=== PATIENT | female | born 1985 | race Hispanic/Latino ===

== ENCOUNTER 2018-03-10 17:37 | Emergency (ER) | payer OTHER, SELFPAY ==
[2018-03-10 17:58] VITALS: BP 102/59; PULSE 86; RESP 14; TEMP 36.9; O2SAT 99
--- NOTE | 2018-03-10 18:03 | ED_ITS ---
HPI - General Adult General Chief complaint: Vaginal Bleeding Stated complaint: 6-7wks preg, lots of bleeding,thinks miscarriage Time Seen by Provider: 03/10/18 18:00 Source: patient Mode of arrival: ambulatory Limitations: no limitations History of Present Illness HPI narrative: Patient is a 32-year-old at approximately 7 weeks EGA here for evaluation of vaginal bleeding. Patient states that she has had an uncomplicated up to this point. This was a planned . Medications use to help her get . This morning she started to have some vaginal spotting. She called the nurse advice line told her to come to the emergency department. She went to an outside hospital and was diagnosed as 6 weeks 3 days with an HCG quant of 6500. She was diagnosed with a urinary tract infection and given a prescription for Keflex. She states that she stop the pharmacy to fill this prescription when she had a sudden onset of large amount of vaginal bleeding with clots and lower abdominal pain. She came to this hospital Related Data Allergies Allergy/AdvReac Type Severity Reaction Status Date / Time No Known Drug Allergies Allergy Verified 03/10/18 18:17 Review of Systems Constitutional Denies fever(s) and Denies headache(s) ENT Ears, Nose, Mouth, and Throat: Denies dizziness and Denies headache(s) Cardiovascular Denies chest pain and Denies dyspnea Respiratory Denies dyspnea Gastrointestinal Gastrointestinal: Reports abdominal pain, Denies cramping, Denies nausea and Denies vomiting Genitourinary Denies dysuria, Denies urinary incontinence, Denies urinary hesitancy and Reports vaginal discharge Musculoskeletal Denies myalgias and Denies arthralgias Integumentary/Breasts Denies rash Neurologic Denies dizziness and Denies headache(s) Hematologic/Lymphatic Denies easy bleeding PFSH Medical History Healthy adult (Acute) Surgical History No pertinent past surgical history (Acute) Social History marital status: Smoking Status: Never smoker Exam Initial Vital Signs Initial Vital Signs: Vital Signs Temperature 98.4 F 03/10/18 17:58 Pulse Rate 86 03/10/18 17:58 Respiratory Rate 14 03/10/18 17:58 Blood Pressure 102/59 L 03/10/18 17:58 Pulse Oximetry 99 03/10/18 17:58 Const General: cooperative, healthy appearing, comfortable, well developed, well groomed and No acute distress Orientation: alert, awake and oriented x3 Resp Effort & Inspection: normal respiratory effort Auscultation: clear to auscultation bilaterally Cardio Rate: regular rate Rhythm: regular rhythm GI Inspection: non-distended Palpation: soft and No firm Skin Lesions: no lesions Rashes: no rashes Neuro General: alert, awake and oriented x3 Extrem General: normal to inspection and capillary refill normal Psych Appearance: grossly normal and well kempt Course Orders Ordered: ED Orders 03/10/18 18:15 US pelvic complete Stat 03/10/18 18:31 ABO RH Type Stat Basic Metabolic Panel Stat Complete Blood Count AUTO DIFF Stat HCG Quantitative Stat Vital Signs - 8 hr 03/10/18 17:58 03/10/18 18:15 03/10/18 19:40 Temperature 98.4 F 98.4 F Pulse Rate 86 86 78 Respiratory Rate 14 14 16 Blood Pressure 105/67 Blood Pressure [Left Arm] 102/59 L 117/71 Pulse Oximetry 99 99 99 Medical Decision Making Lab Data Lab results reviewed: Yes I reviewed the patient's lab results. Result diagrams: 03/10/18 18:31 03/10/18 18:31 Lab Results 03/10/18 03/10/18 03/10/18 Range/Units 18:31 18:31 18:31 WBC 7.2 (4.5-11.0) X10^3/uL RBC 3.89 L (4.0-5.2) X10^6/uL Hgb 12.6 (12.0-16.0) g/dL Hct 36.6 (36-46) % MCV 94.1 (80-100) fL MCH 32.3 (26-34) PG MCHC 34.4 (30-36) % RDW 13.8 (11.6-14.8) % Plt Count 210 (150-400) X10^3/uL Neut % (Auto) 60.9 (50-75) % Lymph % (Auto) 28.9 (25-40) % [place] % (Auto) 7.8 (3-14) % Eos % (Auto) 1.9 L (2-4) % Baso % (Auto) 0.5 (0-2) % Neut # (Auto) 4400 (9678-1768) /uL Sodium 142 (137-145) mmol/L Potassium 4.0 (3.4-5.1) mmol/L Chloride 103 (98-107) mmol/L Carbon Dioxide 27 (22-32) mmol/L BUN 12 (7-17) mg/dL Creatinine 0.50 L (0.52-1.04) mg/dL Estimated GFR > 60.0 (>60) mL/min BUN/Creatinine Ratio 24.0 H (6-22) Glucose 103 H (70-100) mg/dL Calcium 9.4 (8.4-10.2) mg/dL HCG, Quant 3082.9 mIU/mL Blood Type O Positive Urine Dip Bedside Urine Glucose Negative Bedside Urine Bilirubin - Negative Bedside Urine Ketone - Negative Urine Specific [place] 1.020 Bedside Urine Occult Blood +++ Bedside Urine pH 6.5 Bedside Urine Protein - Negative Bedside Urine Urobilinogen - Negative Bedside Urine Nitrite - Negative Bedside Urine Leukocytes - Negative Esterase Point of care testing: Urine Dip Bedside Urine Glucose Negative Bedside Urine Bilirubin - Negative Bedside Urine Ketone - Negative Urine Specific [place] 1.020 Bedside Urine Occult Blood +++ Bedside Urine pH 6.5 Bedside Urine Protein - Negative Bedside Urine Urobilinogen - Negative Bedside Urine Nitrite - Negative Bedside Urine Leukocytes - Negative Esterase Imaging Data US - abdomen: Radiologist's impression: PROCEDURE: US PELVIC COMPLETE INDICATIONS: 6 WEEKS ; BLEEDING, CRAMPING TECHNIQUE: Real-time scanning was performed of the pelvic organs, with image documentation. Additional endovaginal scanning was necessary due to incomplete visualization of the adnexal and endometrial structures by transabdominal scanning. COMPARISON: None. FINDINGS: Transabdominal scanning: Limited scanning through the kidneys shows no hydronephrosis. No pathologic free abdominal or pelvic fluid. Endovaginal scanning: Uterus: Uterus is normal in size at 8.5 x 4.4 x 5.6 cm. The endometrium measures 12.4 mm in combined thickness. No gestational sac is seen. No gross endometrial mass or fluid. Ovaries: Right ovary measures 3.6 x 2.5 x 3.3 cm in size. Left ovary measures 2.1 x 1.3 x 1.3 cm in size. 1.5 x 1.5 x 1.8 cm simple cyst is noted in right ovary. There is also a 1.5 x 1.6 x 1.8 cm solid appearing mildly echogenic structure within right ovary with no internal increased vascularity. IMPRESSION: 1. No evidence of intrauterine gestation. No gross endometrial mass or fluid. Given patient's history. Finding may represent spontaneous . 2. Simple right ovarian cyst as above. 1.5 x 1.6 x 1.8 cm slightly echogenic and solid-appearing structure in right ovary which may represent corpus luteum. Ectopic gestational sac cannot be entirely excluded. Followup with serial beta hCG level is recommended. 3. Normal appearing left ovary. No pelvic free fluid. [facility] Narrative Medical decision making narrative: I was able to review the medical records from her emergency department visit earlier today. Is reported that her HCG level was 6500. It did say in the note that there was no ultrasound available that hospital today but a bedside ultrasound was performed by the ER physician which reports a intrauterine with gestational sac and crown-rump length of 6 weeks 3 days. Our ultrasound today shows no intrauterine . HCG quantitative of 3082. The ultrasound does show what appears to be a cyst on the right ovary. I feel less likely that this is an ectopic given her presentation today. Patient also states that she had a hormone level drawn several weeks ago by her OB provider which she stated it was much higher than 6500. Patient is stable. Blood type is O- positive so no indication for RhoGAM. I discussed all this with the patient. Informed her that she needed to contact her OB provider on Monday to discuss follow-up. She was given return precautions. She expressed understanding and agreement with plan. Discharge Plan Departure Patient Disposition: Home Clinical Impression: Threatened Instructions: Dealing With Miscarriage, DI for Miscarriage Activity Restrictions/Additional Instructions: The hormone level at your 1st emergency department visit today was reported as 6500. The hormone level at this emergency department visit was 3080. The ultrasound performed today is concerning that you are having a miscarriage. I do recommend you contact your OB provider on Monday for follow-up. Return to the emergency department for any new or worsening symptoms.
[2018-03-10 18:15] VITALS: BP 105/67; PULSE 86; RESP 14; TEMP 36.9; O2SAT 99; BMI 19.7
--- NOTE | 2018-03-10 18:15 | DI.US.S_ITS ---
PROCEDURE: US PELVIC COMPLETE INDICATIONS: 6 WEEKS ; BLEEDING, CRAMPING TECHNIQUE: Real-time scanning was performed of the pelvic organs, with image documentation. Additional endovaginal scanning was necessary due to incomplete visualization of the adnexal and endometrial structures by transabdominal scanning. COMPARISON: None. FINDINGS: Transabdominal scanning: Limited scanning through the kidneys shows no hydronephrosis. No pathologic free abdominal or pelvic fluid. Endovaginal scanning: Uterus: Uterus is normal in size at 8.5 x 4.4 x 5.6 cm. The endometrium measures 12.4 mm in combined thickness. No gestational sac is seen. No gross endometrial mass or fluid. Ovaries: Right ovary measures 3.6 x 2.5 x 3.3 cm in size. Left ovary measures 2.1 x 1.3 x 1.3 cm in size. 1.5 x 1.5 x 1.8 cm simple cyst is noted in right ovary. There is also a 1.5 x 1.6 x 1.8 cm solid appearing mildly echogenic structure within right ovary with no internal increased vascularity. IMPRESSION: 1. No evidence of intrauterine gestation. No gross endometrial mass or fluid. Given patient's history. Finding may represent spontaneous . 2. Simple right ovarian cyst as above. 1.5 x 1.6 x 1.8 cm slightly echogenic and solid-appearing structure in right ovary which may represent corpus luteum. Ectopic gestational sac cannot be entirely excluded. Followup with serial beta hCG level is recommended. 3. Normal appearing left ovary. No pelvic free fluid. Dictated by: Harshil Pina M.D. on 03/10/2018 at 19:41 Approved by: Harshil Pina M.D. on 03/10/2018 at 19:44
[2018-03-10 18:51] LABS: Add Manual Diff / Slide Review NO; Basophils Percent Auto 0.5 % (0-2); Eosinophils Percent Auto 1.9 % (2-4); Hematocrit 36.6 % (36-46); Hemoglobin 12.6 g/dL (12.0-16.0); Lymphocytes Percent Auto 28.9 % (25-40); Mean Corpuscular HGB Conc 34.4 % (30-36); Mean Corpuscular Hemoglobin 32.3 PG (26-34); Mean Corpuscular Volume 94.1 fL (80-100); Monocytes Percent Auto 7.8 % (3-14); Neutrophils Absolute Auto 4400 /uL (3000-5900); Neutrophils Percent Auto 60.9 % (50-75); Platelet Count 210 X10^3/uL (150-400); Red Blood Cell Count 3.89 X10^6/uL (4.0-5.2); Red Cell Distribution Width 13.8 % (11.6-14.8); White Blood Cell Count 7.2 X10^3/uL (4.5-11.0)
[2018-03-10 19:03] LABS: Blood Urea Nitrogen 12 mg/dL (7-17); Calcium 9.4 mg/dL (8.4-10.2); Carbon Dioxide 27 mmol/L (22-32); Chloride 103 mmol/L (98-107); Estimated Glomerular Filt Rate > 60.0 mL/min (>60); Glucose 103 mg/dL (70-100); HEMOLYSIS < 15 (0-50); Sodium 142 mmol/L (137-145)
[2018-03-10 19:20] LABS: HCG Quantitative /Beta subunit 3082.9 mIU/mL
[2018-03-10 19:40] VITALS: BP 117/71; PULSE 78; RESP 16; O2SAT 99
== END 2018-03-10 20:20 | disposition home or self-care (01) ==
PROVIDERS: Emergency Provider Emergency Medicine
DX: O20.0 Threatened abortion (principal); Z3A.01 Less than 8 weeks gestation of pregnancy
CPT/HCPCS: 36415; 76830; 76856; 80048; 81003; 84702; 85025; 86900; 86901; 99283; 99284